=== PATIENT | male | born 1975 | race African-American/Black ===

== ENCOUNTER 2021-02-11 16:48 | Emergency (ER) | payer BC ==
[~2021-02-11] VITALS: Ht 172.7 cm; Wt 75.9 kg
[2021-02-11 17:15] VITALS: BP 154/98
[2021-02-11] MEDS ORDERED: HYDROcodone/APAP 5/325MG 1 TAB TABLET PO ONE (18:15)
[2021-02-11] MEDS ORDERED: DIPH,PERTUSS(ACELL),TET VAC/PF 0.5 ML SYRINGE. VAX IM ONE (18:15)
[2021-02-11] MEDS ORDERED: NAPROXEN 500 MG TABLET PO ONE (18:15)
[2021-02-11] MEDS ORDERED: BACITRACIN ZINC TOPICAL OINT PACKET. TP ONE (18:15)
[2021-02-11] MEDS ORDERED: OXYC-314 PO (18:19)
[2021-02-11] MEDS ORDERED: BACI28.43 TP (18:19)
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
== END 2021-02-11 19:11 | disposition home or self-care (01) ==
LOC: ER 16:48
DX: T25.221A Burn of second degree of right foot, initial encounter (principal); E11.9 Type 2 diabetes mellitus without complications; X08.8XXA Exposure to other specified smoke, fire and flames, initial encounter; Y93.89 Activity, other specified; Y92.89 Other specified places as the place of occurrence of the external cause; Y99.8 Other external cause status
CPT/HCPCS: 16000; 90471; 90715; 99283